=== PATIENT | male | born 1995 | race Caucasian/White ===

== ENCOUNTER 2017-05-21 21:59 | Emergency (ER) | payer OTHER ==
[~2017-05-21] VITALS: Ht 172.7 cm; Wt 130.5 kg
[2017-05-21 22:02] VITALS: Ht 172.7 cm; Wt 130.5 kg
[2017-05-22] MEDS ORDERED: FAMOTIDINE 20 MG TAB PO ONE (01:00)
[2017-05-22] MEDS ORDERED: METHYLPREDNISOLONE 125 MG INJ IM ONE (01:00)
[2017-05-22] MEDS ORDERED: DIPHENHYDRAMINE 25 MG CAP PO ONE (01:00)
[2017-05-22] MEDS ORDERED: BEN25 PO (01:13)
[2017-05-22] MEDS ORDERED: PRED20TA PO (01:13)
--- NOTE | 2017-05-22 01:19 | ERD ---
ER Documentation Chief Complaint Date/Time DATE: 05/22/17 TIME: 01:16 Chief Complaint scaterred body rashes HPI 22-year-old male patient with no significant past medical history presents the ED complaining of rashes on the bilateral arms that started earlier today after moving car parts and accidentally increasing over the curtains. States that he has not used any new soaps or detergents. Denies any exposure to pets or insects. Denies eating any new foods. Denies any chest pain, shortness of breath, abdominal pain, nausea, vomiting, diarrhea, lip swelling, tongue swelling. ROS All systems reviewed and are negative except as per history of present illness. Medications Home Meds Active Scripts Ibuprofen* (Motrin*) 600 Mg Tab, 600 MG PO Q6, #30 TAB Prov:KELLIEMADIE 05/23/17 Prednisone* (Prednisone*) 20 Mg Tab, 40 MG PO DAILY for 4 Days, TAB Prov:JUSTICE WILKINS PA-C 05/22/17 Diphenhydramine Hcl* (Benadryl*) 25 Mg Cap, 25 MG PO Q6 Y for ITCHING/RASH, #30 TAB Prov:JUSTICE WILKINS PA-C 05/22/17 Allergies Allergies: Coded Allergies: No Known Allergy (Unverified , 12/28/14) PMhx/Soc History of Surgery: No Anesthesia Reaction: No Hx Neurological Disorder: No Hx Respiratory Disorders: No Hx Cardiac Disorders: No Hx Psychiatric Problems: No Hx Miscellaneous Medical Probl: No Hx Alcohol Use: No Hx Substance Use: No Hx Tobacco Use: No Physical Exam Vitals Vital Signs Date Time Temp Pulse Resp B/P Pulse Ox O2 Delivery O2 Flow Rate FiO2 05/21/17 22:02 97.6 87 20 143/80 100 Physical Exam Const: [id number], well-nourished. In no acute distress. Head: Atraumatic, normocephalic Eyes: Normal Conjunctiva without injection. No purulent discharge. PERRL. EOMI ENT: Normal external ear. Ear canal without erythema. Tympanic membrane pearly brown without effusion or bulging. Nasal canal clear with normal turbinates. Moist oropharynx without tonsillar exudates. Non-erythematous pharynx. Uvula midline. No drooling. No trismus. Neck: Full range of motion. No meningismus. No cervical lymphadenopathy. Resp: Clear to auscultation bilaterally. No wheezing, rhonchi, rales, or crackles. No accessory muscle use. No retractions. Cardio: Regular rate and rhythm. No murmurs, rubs or gallops. Abd: Soft, non tender, non distended. Normal bowel sounds. No palpable masses. No rebound tenderness. No guarding. Skin: No petechiae or purpura. Diffuse blanching erythematous wheals (urticaria ) noted of the bilateral upper extremities and the volar aspect. No bleeding noted. No purulent discharge. No fluctuance or induration. Back: No midline tenderness. No CVA tenderness. Ext: No cyanosis, or edema. Neur: Awake and alert. Psych: Normal Mood and Affect Results 24 hrs Current Medications Medications (Trade) Dose Ordered Sig/Emigdio Route PRN Reason Start Time Stop Time Status Last Admin Dose Admin Methylprednisolone Sodium Succinate (Solu-Medrol) 125 mg ONCE ONCE IM 05/22/17 01:00 05/22/17 01:01 DC 05/22/17 01:54 Diphenhydramine HCl (Benadryl) 25 mg ONCE ONCE PO 05/22/17 01:00 05/22/17 01:01 DC 05/22/17 01:53 Famotidine (Pepcid) 20 mg ONCE ONCE PO 05/22/17 01:00 05/22/17 01:01 DC 05/22/17 01:53 Procedures/MDM 22-year-old male patient with no significant past medical history presents to the ED complaining of bilateral urticaria noted on the upper extremities. Patient is afebrile nontoxic appearing. Patient has normal vital signs. Patient likely has urticaria secondary to an allergic reaction of unknown etiology. There is low suspicion for anaphylaxis. Low suspicion for scabies, SJS/TEN, erythema multiforme, sepsis, cellulitis, necrotizing fascitis, gangrene , meningococcemia or other emergent conditions. Discharge medications: Prednisone, Benadryl Follow up with primary care physician in 1-2 days for allergy testing. Instructed patient to return to the ED sooner for any worsening symptoms. Patient's questions were answered. Patient understood and agreed with discharge plan. Patient discharged stable. Departure Diagnosis: Primary Impression: Urticaria Condition: Stable Patient Instructions: Allergic Reaction, Other (General) Referrals: COMMUNITY CLINICS YOU HAVE RECEIVED A MEDICAL SCREENING EXAM AND THE RESULTS INDICATE THAT YOU DO NOT HAVE A CONDITION THAT REQUIRES URGENT TREATMENT IN THE EMERGENCY DEPARTMENT. FURTHER EVALUATION AND TREATMENT OF YOUR CONDITION CAN WAIT UNTIL YOU ARE SEEN IN YOUR DOCTORS OFFICE WITHIN THE NEXT 1-2 DAYS. IT IS YOUR RESPONSIBILITY TO MAKE AN APPOINTMENT FOR FOLOW-UP CARE. IF YOU HAVE A PRIMARY DOCTOR --you should call your primary doctor and schedule an appointment IF YOU DO NOT HAVE A PRIMARY DOCTOR YOU CAN CALL OUR PHYSICIAN REFERRAL HOTLINE AT IF YOU CAN NOT AFFORD TO SEE A PHYSICIAN YOU CAN CHOSE FROM THE FOLLOWING [facility] [address] [facility] [address] [facility] [facility] [address] [facility] [address] [facility] [address] [facility]. [facility] [address] [facility]. [facility] YOU HAVE RECEIVED A MEDICAL SCREENING EXAM AND THE RESULTS INDICATE THAT YOU DO NOT HAVE A CONDITION THAT REQUIRES URGENT TREATMENT IN THE EMERGENCY DEPARTMENT. FURTHER EVALUATION AND TREATMENT OF YOUR CONDITION CAN WAIT UNTIL YOU ARE SEEN IN YOUR DOCTORS OFFICE WITHIN THE NEXT 1-2 DAYS. IT IS YOUR RESPONSIBILITY TO MAKE AN APPOINTMENT FOR FOLOW-UP CARE. IF YOU HAVE A PRIMARY DOCTOR --you should call your primary doctor and schedule and appointment IF YOU DO NOT HAVE A PRIMARY DOCTOR YOU CAN CALL OUR PHYSICIAN REFERRAL HOTLINE AT . IF YOU CAN NOT AFFORD TO SEE A PHYSICIAN YOU CAN CHOSE FROM THE FOLLOWING [facility] IN[facility]IONS: [facility] [address] [place] [address] [facility] [address] [place] [address] FOR[facility]LY [facility] + [facility] [address] [place] [address] [facility] URGENT [facility]SPECIALTIES Additional Instructions: FOLLOW UP WITH YOUR PRIMARY CARE PHYSICIAN TOMORROW for a referral for allergy testing. Return to this facility if you are not improving as expected - wheezing , shortness of breath, fever, increased redness or swelling, abdominal pain, lip or tongue swelling etc. JUSTICE WILKINS PA-C May 22, 2017 01:19
[2017-05-22 02:52] VITALS: PULSE 80; RESP 20; TEMP 97.9
[2017-05-23] MEDS ORDERED: IBUP-1542 PO (04:56)
== END 2017-05-22 02:00 | disposition home or self-care (01) ==
LOC: FTE 21:59
DX: L50.9 Urticaria, unspecified (principal)
CPT/HCPCS: 96372; J2930; Z7502; Z7610

== ENCOUNTER 2017-05-23 01:49 | Emergency (ER) | payer OTHER ==
[~2017-05-23] VITALS: Ht 177.8 cm; Wt 129.0 kg
[~2017-05-23 01:49] MED LIST: BEN25 PO; PRED20TA PO
[2017-05-23 01:52] VITALS: Ht 177.8 cm; Wt 129.0 kg
--- NOTE | 2017-05-23 03:59 | ERD ---
ER Documentation Chief Complaint Date/Time DATE: 05/23/17 TIME: 03:57 Chief Complaint right hand swelling, abrasions as he hit right hand against wall HPI This 22-year-old male patient punched a brick wall with his right hand obvious deformity erythema with open abrasion on middle finger.Full range of motion and denies numbness or tingling to fingers ROS All systems reviewed and are negative except as per history of present illness. Medications Home Meds Active Scripts Ibuprofen* (Motrin*) 600 Mg Tab, 600 MG PO Q6, #30 TAB Prov:KELLIEMADIE 05/23/17 Prednisone* (Prednisone*) 20 Mg Tab, 40 MG PO DAILY for 4 Days, TAB Prov:JUSTICE WILKINS PA-C 05/22/17 Diphenhydramine Hcl* (Benadryl*) 25 Mg Cap, 25 MG PO Q6 Y for ITCHING/RASH, #30 TAB Prov:JUSTICE WILKINS PA-C 05/22/17 Allergies Allergies: Coded Allergies: No Known Allergy (Unverified , 12/28/14) PMhx/Soc Medical and Surgical Hx: pt denies Medical Hx, pt denies Surgical Hx History of Surgery: No Anesthesia Reaction: No Hx Neurological Disorder: No Hx Respiratory Disorders: No Hx Cardiac Disorders: No Hx Psychiatric Problems: No Hx Miscellaneous Medical Probl: No Hx Alcohol Use: No Hx Substance Use: No Hx Tobacco Use: No Smoking Status: Never smoker Physical Exam Vitals Vital Signs Date Time Temp Pulse Resp B/P Pulse Ox O2 Delivery O2 Flow Rate FiO2 05/23/17 01:52 99.0 100 20 133/75 98 Vitals stable, triage notes reviewed Physical Exam Const: Well-nourished well-hydrated well-appearing male patient no acute distress Head: Eyes: ENT: Normal External Ears, Nose and Mouth. Neck: Resp: Respirations even and unlabored no respiratory distress Cardio: Abd: Skin: Multiple abrasions over her knuckles right hand Back: Hand - Right hand Skin: Multiple abrasions over knuckles right hand Compartments: Soft Sensation: Intact shoulder/pinky/middle finger/thumb web space Bones: Metatarsal and phalanx tenderness second third and fourth Snuffbox: Nontender Joints: No effusion Wrist: Flex/Ext: Normal Uln/Radial deviation: Normal Pron/Supination [Normal] Finger: Flex/Ext: Normal Add/abd: Normal Thumb: Flex/Ext: Normal Opposition: Normal Thumbs up: Normal Neur: Awake and alert Psych: Normal Mood and Affect Results 24 hrs Current Medications Medications (Trade) Dose Ordered Sig/Emigdio Route PRN Reason Start Time Stop Time Status Last Admin Dose Admin Acetaminophen/ Hydrocodone Bitart ([place] (5/325)) 1 tab ONCE ONCE PO 05/23/17 04:00 05/23/17 04:01 DC Procedures/MDM PROCEDURE: XR Hand. CLINICAL INDICATION: trauma TECHNIQUE: AP oblique and lateral views of the right hand were obtained. COMPARISON: No prior studies are available for comparison. FINDINGS: There is normal mineralization. No acute fracture or dislocation is seen. There are no significant degenerative changes. There is dorsal hand soft tissue swelling. IMPRESSION: Soft tissue swelling. No evidence of fracture. Electronically viewed and signed by Melissa Bales, Physician on 05/23/2017 04: 25 This 22-year-old male patient presents to emergency department after punching a wall. Patient reportedly was angry at his [id number] went outside and punched a wall. Patient has full sensation and movement in hand. Hand is edematous, knuckles abrasions noted. Differential diagnosis includes but not limited to metatarsal fracture, hand sprain, contusion. I have little suspicion for compartment syndrome. Patient treated with [place] for pain, wound care provided, x-ray as read by radiologist findings: There is normal mineralization. No acute fracture or dislocation is seen. There are no significant degenerative changes. There is dorsal hand soft tissue swelling. Impression soft tissue swelling no evidence of fracture. Patient will be sent home with posterior hand splint to stay in place 48 hours remove after, wash wounds with soap and water. Neosporin. Return to emergency department for any discharge coming from wounds worsening of redness or edema. Patient is stable with no new complaints during ER course, clinically there is no current evidence to suggest any other emergent condition appearing to require further evaluation or hospitalization. I feel the patient is stable for discharge at this time. I have discussed results, examination findings, the treatment plan with the patient and family present prior to discharge. Indications for emergent reevaluation, side effects of medication were also discussed. All questions were answered. Patient verbalizes understanding and agrees with plan of care Splint Assessment: Neurovascularly intact post splint placement with good fit. Late entry: Patient was here yesterday treated for hives has been using over-the -counter Benadryl every 6 hours patient reports he forgot to take it and has hives starting to develop on his left arm Benadryl 25 mg given p.o.. Departure Diagnosis: Primary Impression: Hand contusion Encounter type: initial encounter Laterality: right Qualified Code: S60.221A - Contusion of right hand, initial encounter Condition: Good Patient Instructions: Contusion, Hand Referrals: COMMUNITY CLINICS Additional Instructions: [facility] Please ask your nurse or provider if you have questions about your care today and do not leave until all your questions have been answered. Please use any medications given as directed and follow-up with your doctor (or the doctor you were referred to) in the next 2-3 days. If you do not have a primary care doctor you may follow up [place] [facility] [place] You may also use motrin and tylenol as needed for fever and/or pain unless instructed otherwise by your provider or nurse. Indications for more urgent follow-up have been discussed, but you may return to the Emergency Department at ANY time for any worrisome or worsening symptoms. If you have abdominal pain, please know that no test or exam you received is perfect and you should follow up within 8 hours for continued pain. If you had any imaging studies today, such as an X-Ray or CT Scan, these studies will be reviewed later by a radiologist. You will be called if there are important findings that were not identified today, so make sure the contact information you provided at registration is correct. If you received any narcotic pain control medicine today, such as Vicodin, Morphine or Dilaudid, your coordination and judgment may be affected for a number of hours. Please do not drive or operate heavy machinery, and you may want someone to assist you at home. If you were given a prescription for narcotic medication, be aware that it is very addictive- use sparingly and only if necessary. MADIE HOPKINS May 23, 2017 03:59
[2017-05-23] MEDS ORDERED: HYDROCODONE/APAP (5/325) TAB PO ONE (04:00)
--- NOTE | 2017-05-23 04:25 | RADRPT ---
PROCEDURE: XR Hand. CLINICAL INDICATION: trauma TECHNIQUE: AP oblique and lateral views of the right hand were obtained. COMPARISON: No prior studies are available for comparison. FINDINGS: There is normal mineralization. No acute fracture or dislocation is seen. There are no significant degenerative changes. There is dorsal hand soft tissue swelling. IMPRESSION: Soft tissue swelling. No evidence of fracture. Physician Joana Date Time Electronically viewed and signed by Physician Joana on 05/23/2017 04:25 CS/
[2017-05-23] MEDS ORDERED: IBUP-1542 PO (04:56)
[2017-05-23] MEDS ORDERED: DIPHENHYDRAMINE 25 MG CAP PO ONE (05:30)
[2017-05-23 06:07] VITALS: BP 129/75; PULSE 79; RESP 16; TEMP 98.3
== END 2017-05-23 06:09 | disposition home or self-care (01) ==
LOC: FTE 01:49
DX: S60.221A Contusion of right hand, initial encounter (principal); W22.09XA Striking against other stationary object, initial encounter; Y92.9 Unspecified place or not applicable
CPT/HCPCS: 29125; 73130; Z7502; Z7610